=== PATIENT | female | born 1970 | race Caucasian/White ===

== ENCOUNTER 2024-09-11 17:18 | Emergency (ER) | payer MEDICAID, SELFPAY ==
[2024-09-11 17:55] VITALS: BP 153/84; PULSE 63; RESP 18; TEMP 37.1; O2SAT 97; BMI 39.4
--- NOTE | 2024-09-11 18:01 | EKG_ITS ---
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
--- NOTE | 2024-09-11 18:01 | XR_ITS ---
Examination: CT brain head without contrast. 2-D sagittal coronal reconstructions Date and time of exam:September 11, 2024, 1821 hours INDICATIONS: Onset headaches today CTDI: vol (mGy):51.3 DLP: (mGycm):1012 Technique: Multiple CT axial sections of the brain have been obtained, 5 mm slice thickness. Contrast has not been administered. 2-D sagittal, coronal reconstructions have been obtained Low dose protocols were performed. One or more of the following dose reduction techniques were used; automated exposure control, adjustment of the mA and/or KV according to patient size, use of iterative reconstruction technique. Findings: No significant ventricular enlargement. No definite hemorrhage No mass effect or midline shift Basal cisterns are not remarkable. Fourth ventricle is midline. Cranial vault intact. Impression: Negative for acute hemorrhage, mass effect or midline shift If new onset headaches persist, recommend brain MRI MRA without contrast follow-up
--- NOTE | 2024-09-11 18:02 | PD.EDRME ---
Rapid Medical Screening Exam RME Arrival date/time: 09/11/24 17:18 54-year-old female presents emergency department today complaints of dizziness and ringing in her ear since last night patient reports he went to primary care doctor was given meclizine and Zofran without relief Chief Complaint: Nausea/Vomiting/Diarrhea Vital signs: Vital Signs Temperature 98.8 F 09/11/24 17:55 Pulse Rate 63 09/11/24 17:55 Respiratory Rate 18 09/11/24 17:55 Blood Pressure 153/84 H 09/11/24 17:55 Pulse Oximetry (%) 97 09/11/24 17:55 Oxygen Delivery Method Room Air 09/11/24 17:55
[2024-09-11 19:04] LABS: Basophils % (Auto) 0 % (0-2.5); Eosinophils # (Auto) 0.1 Thou/mm3 (0.0-0.5); Eosinophils % (Auto) 1 % (0-10); Hematocrit 37.2 % (36.0-46.0); Hemoglobin 12.1 g/dL (12.0-16.0); Immature Granulocytes % (Auto) 0 % (0-0); Immature Granulocytes Auto 0.02 Thou/mm3 (0.00-0.00); Lymphocytes # (Auto) 1.8 Thou/mm3 (1.0-4.8); Lymphocytes % (Auto) 22 % (10-50); Mean Corpuscular HGB Conc 32.5 g/dl (31.0-37.0); Mean Corpuscular Hemoglobin 26.7 pg (25.0-35.0); Mean Corpuscular Volume 82 fL (80-100); Monocytes # (Auto) 0.7 Thou/mm3 (0.0-0.8); Monocytes % (Auto) 9 % (0-12); Neutrophils # (Auto) 5.4 Thou/mm3 (1.8-7.7); Neutrophils % (Auto) 68 % (37-80); Nucleated Red Blood Cell % 0 /100 WBC (0); Platelet Count 205 Thou/mm3 (140-440); RDW Standard Deviation 47.8 fL (36.4-46.3); Red Blood Count 4.54 Miln/mm3 (4.00-5.20); White Blood Count 7.9 Thou/mm3 (3.6-11.0)
--- NOTE | 2024-09-11 19:06 | PD.EDDIZZY ---
ED Dizzyness RME/HPI General Chief Complaint: Nausea/Vomiting/Diarrhea Stated Complaint: MUCHO VOMITO , DIZZINESS X 0300; SEEN AT CLINIC Time Seen by Provider: 09/11/24 18:26 Arrival date/time: 09/11/24 17:18 RME / HPI RME / HPI Narrative: 09/11/24 17:18 54-year-old female presents emergency department today complaints of dizziness and ringing in her ear since last night patient reports he went to primary care doctor was given meclizine and Zofran without relief -------- This section includes all my notes and documentations, including HPI, PE, and ED course. Aryan Samaniego MD HPI: 54-year-old female here with 3-day history of dizziness. She reports spinning sensation and vomiting. Associated with moving, including her head. No speech or visual impairment. No loss of power in the arms or legs. No numbness or tingling. No chest pain or shortness of breath. No other complaints. ROS: All negative except as documented in HPI. Physical Exam: General: Alert and oriented. No acute distress when remaining still. Eyes: Conjunctivae and lids clear. EOMI. PERRL. ENT: No nasal congestion. Neck: Supple. Heart: RRR. Lungs: No respiratory distress. Good air movement. No rhonchi, wheezing, rales. Abdomen: Soft and nontender. Legs: No clubbing, cyanosis, edema. Skin: Warm and dry. Neuro: Alert and oriented X 3. Cranial nerves II to XII grossly normal. No peripheral motor deficits. I reviewed all diagnostic test results. My interpretation of the EKG is sinus rhythm with no acute ST?T changes. My review of the head CT report is no acute findings. Blood tests and urine tests unremarkable. At this point, diagnoses include vertigo. Treatment here included NS IVF, Meclizine, Zofran, and Scopolamine. Significant improvement noted. Recommended supportive care and more outpatient workup. Based on my best medical judgment, made decision no further evaluation or treatment indicated at this time. Patient understands and agrees to the discharge instructions customized and printed, see below. Discharge instructions from Dr. Samaniego: ? After extensive evaluation, there is no life-threatening condition. Such as stroke or brain tumor or heart attack. -- Your severe symptoms are due to vertigo. This is an inner ear problem that makes you feel like you are drunk or seasick. See attached handout. -- Use scopolamine patch and/or meclizine for your severe symptoms. -- And Zofran for nausea/vomiting. And increase oral fluid to prevent dehydration. Maintain clear urine. If dark or yellow, increase oral fluid. -- And do everything very slowly. Including moving your head. And when you sit up or stand up, wait a minute before you progress. -- See your private doctor on 09/12/2024. If needed, ask to help you get more care not available here in the ER. Such as MRI imaging of your brain, physical therapy, table tilt test, and referrals to see specialists (such as neurologist and ENT specialist). -- Seek immediate medical care with worsening or with any concerns. Aryan Samaniego MD Related Data Previous Rx's ?Medication ?Instructions ?Recorded meclizine 25 mg tablet 25 mg PO BID PRN dizziness #20 tabs 09/11/24 ondansetron 4 mg disintegrating 4 mg PO TID PRN nausea and 09/11/24 tablet vomiting 30 days #10 tabs scopolamine base 1 mg over 3 days 1 mg topical .q72 hours PRN 09/11/24 transdermal patch (Transderm-Scop) dizziness or vertigo #4 ea Allergies Allergy/AdvReac Type Severity Reaction Status Date / Time No Known Allergies Allergy Verified 09/11/24 17:21 Review of Systems Review of Systems Systems Reviewed: All systems reviewed, normal except as documented Past Medical History Social History SMOKING STATUS: Never smoker ED Exam Narrative Physical exam: As noted in HPI. Course Quality Measures none Orders Category Date Time Status Bedside COVID-19 Antigen Test NOW Care 09/11/24 18:42 Active Bedside Influenza A&B Antigen Test NOW Care 09/11/24 18:42 Completed EKG (ED ONLY) *Do not use* NOW Care 09/11/24 18:01 Completed Saline [Insert IV] NOW Care 09/11/24 18:42 Active Straight [In and Out Catheter] X1 Care 09/11/24 18:[address] head/brain wo con Stat Exams 09/11/24 18:01 Completed EKG (ED Only) Stat Exams 09/11/24 18:01 Draft B-Type Natriuretic Peptide Stat Lab 09/11/24 18:40 Completed CBC Stat Lab 09/11/24 18:40 Completed Comprehensive Metabolic Panel Stat Lab 09/11/24 18:40 Completed Magnesium Stat Lab 09/11/24 18:40 Completed Partial Thromboplastin Time Stat Lab 09/11/24 18:40 Received Prothrombin Time with INR Stat Lab 09/11/24 18:40 Received Troponin I Stat Lab 09/11/24 18:40 Completed Urinalysis Stat Lab 09/11/24 19:08 Completed Urine Culture Stat Lab 09/11/24 19:46 Ordered Meclizine HCl [Antivert] Med 09/11/24 18:42 Discontinued 25 mg PO X1 ONE Ondansetron Inj [Zofran Inj] Med 09/11/24 18:42 Discontinued 4 mg IV X1 ONE Scopolamine [Transderm-Scop Patch] Med 09/11/24 18:42 Discontinued 1 mg TOP X1 ONE Sodium Chloride 0.9% 1000 ml [Ns] 1,000 ml Med 09/11/24 18:42 Discontinued IV 999 mls/hr Vital Signs Vital signs: Vital Signs Temperature 98.8 F 09/11/24 17:55 Pulse Rate 63 09/11/24 17:55 Respiratory Rate 18 09/11/24 17:55 Blood Pressure 153/84 H 09/11/24 17:55 Pulse Oximetry (%) 97 09/11/24 17:55 Oxygen Delivery Method Room Air 09/11/24 17:55 Dizziness Patient data External records reviewed:: [facility] previous records (Per chart review, patient has no previous ED visits or admissions to this facility.) Clinical information provided by:: patient Social determinants that could affect healthcare access:: none Patient has the following chronic illnesses:: none How is presenting disease/condition affected by chronic disease/condition?: no chronic disease Evaluation data The following diagnostics were reviewed and interpreted by me:: lab results, radiology exam(s) and EKG tracing(s) Lab and/or radiology exams considered but not ordered:: none Interpretation Summary: Normal diagnostics Medications / Prescriptions Medications or Prescriptions considered but not ordered:: none Medication administrations:: Medication Administration History Discontinued Medications Sodium Chloride (Ns) 1,000 mls @ 999 mls/hr IV .Q1H1M ONE Stop: 09/11/24 19:42 Last Admin: 09/11/24 19:18 Dose: 999 mls/hr Documented By: DEANDRE Meclizine HCl (Meclizine Hcl 25 Mg Tablet) 25 mg PO X1 ONE Stop: 09/11/24 18:43 Last Admin: 09/11/24 19:18 Dose: 25 mg Documented By: DEANDRE Ondansetron HCl (Ondansetron Inj 2 Mg/Ml Inj 2 Ml) 4 mg IV X1 ONE; Protocol Stop: 09/11/24 18:43 Last Admin: 09/11/24 19:23 Dose: 4 mg Documented By: DEANDRE Scopolamine (Scopolamine 1 Mg Tdsy) 1 mg TOP X1 ONE Stop: 09/11/24 18:43 Last Admin: 09/11/24 19:18 Dose: 1 mg Documented By: DEANDRE NS IVF, Meclizine, Zofran, Scopolamine Consultations Consultation(s) initiated? (list below): No Diagnosis Dizziness Differential Diagnosis: benign paroxysmal positional vertigo, orthostatic hypotension, cerebrovascular accident, transient cerebral ischemia and other (CREATIVE/ART DIRECTOR tumor, HI, dehydration, electrolyte abnormalities) Most likely diagnosis given after review of the tests above:: vertigo Admission Indicated Admission indicated?: not indicated Explain why admission is indicated or not indicated:: No criteria for admission. Admission Request Was there a request for admission?: No Disposition Plan Disposition Plan: Discharge Discharge Attestation Discharge Attestation: The patient and all family members were given an opportunity to ask questions and understood the discharge instructions. Discharge instructions specifically effects, indications for sooner follow up or return to the emergency department, and the expected course of current diagnosis. Patient condition: Stable Discharge Plan Plan Patient Disposition: HOME (Self Care) Prescriptions/Referrals Prescriptions/Med Rec: New meclizine 25 mg tablet 25 mg PO BID PRN (Reason: dizziness) Qty: 20 0RF scopolamine base [Transderm-Scop] 1 mg over 3 days patch 3 day 1 mg topical .q72 hours PRN (Reason: dizziness or vertigo) Qty: 4 0RF ondansetron 4 mg tablet,disintegrating 4 mg PO TID PRN (Reason: nausea and vomiting) 30 Days Qty: 10 0RF Referrals: No Primary/Family,Physician [Primary Care Provider] - In 1 week Problem List Clinical Impression: Vertigo Patient/Caregiver Discharge Instructions Discharge Activity: activity as tolerated Education Materials: ED Vertigo, Unspecified Additional Instructions: Discharge instructions from Dr. Samaniego: ? After extensive evaluation, there is no life-threatening condition.? Such as stroke or brain tumor or heart attack. -- Your severe symptoms are due to vertigo.? This is an inner ear problem that makes you feel like you are drunk or seasick.? See attached handout. -- Use scopolamine patch and/or meclizine for your severe symptoms. -- And Zofran for nausea/vomiting.? And increase oral fluid to prevent dehydration.? Maintain clear urine.? If dark or yellow, increase oral fluid. -- And do everything very slowly.? Including moving your head.? And when you sit up or stand up, wait a minute before you progress.? -- See your private doctor on 09/12/2024. If needed, ask to help you get more care not available here in the ER.? Such as MRI imaging of your brain, physical therapy, table tilt test, and referrals to see specialists (such as neurologist and ENT specialist). -- Seek immediate medical care with worsening or with any concerns. Instrucciones de patti del Dr. Samaniego: ? Tras mayito evaluaci?n exhaustiva, no se whyte detectado ninguna afecci?n potencialmente mortal, james un derrame cerebral, un tumor cerebral o un infarto. -- Lynn s?ntomas graves se deben al v?rtigo. Se trata de un problema del o?do interno que le produce mayito sensaci?n de ebriedad o mareo. Consulte el folleto adjunto. -- Use un parche de escopolamina o meclizina para los s?ntomas graves. -- Y Zofran para las n?useas y los v?mitos. Aumente la ingesta de l?quidos por v?a oral para prevenir la deshidrataci?n. Mantenga la orina shy. Si es oscura o amarilla, aumente la ingesta de l?quidos por v?a oral. -- Jennifer todo muy lentamente, incluyendo finish remover la carolynn. Al incorporarse o levantarse, espere un minuto antes de continuar. -- Consulte a kim m?dico particular el 12/09/2024. Si es necesario, solicite ayuda para obtener m?s atenci?n que no est? disponible en urgencias. James im?genes por resonancia magn?maren del cerebro, fisioterapia, prueba de inclinaci?n de la alcantar y derivaciones a especialistas (james neur?logos y otorrinolaring?logos). -- Busque atenci?n m?dica inmediata si presenta empeoramiento o cualquier inquietud. Print Language: Serbian Stand Alone Forms: Dionne Award Info., Patient Portal Info Letter
[2024-09-11 19:16] LABS: Collection Type, Urine Clean Catch; RBC,Urine 0 /hpf (0-3)
[2024-09-11] MEDS: MECLIZINE HCL 25 MG TABLET PO (19:18)
[2024-09-11] MEDS: SCOPOLAMINE 1 MG TDSY TOP (19:18)
[2024-09-11] MEDS: SODIUM CHLORIDE 0.9% 1000 ML 1,000 ML 999 ML IV (19:18)
[2024-09-11 19:21] LABS: Alanine Aminotransferase 26 U/L (10-49); Albumin, Serum 4.4 gm/dL (3.5-5.0); Albumin/Globulin Ratio 1.5 (1.2-2.2); Alkaline Phosphatase 89 U/L (46-116); Anion Gap 10 (7-16); Aspartate Amino Transferase 27 U/L (0-34); BUN/Creatinine Ratio 16 Ratio (12-20); Bilirubin,Total 0.6 mg/dL (0.3-1.2); Blood Urea Nitrogen 11 mg/dL (9-23); Calcium 9.5 mg/dL (8.3-10.6); Calcium (Corrected) 9.5 mg/dL (8.5-10.1); Carbon Dioxide 25.9 mMol/L (20.0-31.0); Chloride 105 mMol/L (98-107); Creatinine (Component) 0.7 mg/dL (0.6-1.3); Estimated Creatinine Clearance 94.9 mL/min (>60); Globulin 2.9 gm/dL (2.3-3.5); Glucose 115 mg/dL (74-106); Osmolality,Calculated 281 (275-295); Potassium 3.6 mMol/L (3.4-5.1); Sodium 141 mMol/L (136-145); Total Protein 7.3 gm/dL (5.7-8.2); Troponin I < 0.002 ng/mL (0.0-0.045); eGFR > 60 See Note
[2024-09-11] MEDS: ONDANSETRON INJ 2 MG/ML INJ 2 ML 4 MG IV (19:23)
[2024-09-11 19:31] VITALS: BP 128/68; PULSE 69; RESP 16; TEMP 36.7; O2SAT 97
[2024-09-11 19:37] LABS: B-Type Natriuretic Peptide 61 pg/mL (0-100)
[2024-09-11 19:38] LABS: Bilirubin,Urine Negative (Negative); Blood,Urine Negative (Negative); Clarity,Urine Turbid (Clear/Hazy); Color,Urine Yellow (Lt Yel-Yel); Glucose, Urine Negative (Negative); Ketones,Urine 1+ (Negative); Leukocyte Esterase,Urine Positive (Negative); Nitrite,Urine Negative (Negative); Protein,Urine Trace (Neg - Trace); Specific Gravity,Urine 1.026 (1.001-1.035); Squamous Epithelial Cell,Urine 8 /hpf (0-5); Urobilinogen,Urine Negative mg/dL (0.0-1.0); WBC,Urine 45 /hpf (0-5)
[2024-09-11 20:57] VITALS: BP 132/75; PULSE 75; RESP 19; TEMP 36.8; O2SAT 98
[2024-09-11 22:22] LABS: Partial Thromboplastin Time 25.5 Seconds (22.0-36.0)
[2024-09-11 22:25] LABS: Prothrombin Time > 63.0 Seconds (9.0-12.2)
== END 2024-09-11 21:13 | disposition home or self-care (01) ==
PROVIDERS: Nurse Practitioner Primary Care; Emergency Provider Emergency Medicine
DX: R42 Dizziness and giddiness (principal); R51.9 Headache, unspecified; I45.10 Unspecified right bundle-branch block
CPT/HCPCS: 36415; 70450; 80053; 81001; 83735; 83880; 84484; 85025; 85610; 85730; 87086; 87400; 87811; 93005; 96361; 96374; 99284; J2405; J7030; A9270

== ENCOUNTER 2025-03-30 10:49 | Emergency (ER) | payer MEDICAID, SELFPAY ==
[2025-03-30 11:18] VITALS: BP 138/88; PULSE 87; RESP 18; TEMP 36.7; O2SAT 99; BMI 34.1
--- NOTE | 2025-03-30 11:18 | PD.EDRME ---
Rapid Medical Screening Exam RME Arrival date/time: 03/30/25 10:49 55-year-old female with no known medical history sent to the emergency room by her primary care provider due to elevated coagulation levels. Patient is scheduled to have a right sided hip surgery but due to her coagulation levels she is unable to get clearance. Primary care provider sent her to the emergency room for further management I have greeted and performed a focused initial assessment of this patient. A comprehensive ED assessment and evaluation of the patient, analysis of all test results, and completion of the medical decision making process will be conducted by additional ED providers. Chief Complaint: General Adult/Misc Complain Time Seen by Provider: 03/30/25 11:03 Vital signs reviewed by provider: Yes
[2025-03-30 12:07] LABS: Basophils # (Auto) 0.0 Thou/mm3 (0.0-0.2); Basophils % (Auto) 1 % (0-2.5); Eosinophils # (Auto) 0.1 Thou/mm3 (0.0-0.5); Eosinophils % (Auto) 1 % (0-10); Hematocrit 38.2 % (36.0-46.0); Hemoglobin 12.2 g/dL (12.0-16.0); Immature Granulocytes Auto 0.01 Thou/mm3 (0.00-0.00); Lymphocytes # (Auto) 2.2 Thou/mm3 (1.0-4.8); Lymphocytes % (Auto) 34 % (10-50); Mean Corpuscular HGB Conc 31.9 g/dl (31.0-37.0); Mean Corpuscular Hemoglobin 25.6 pg (25.0-35.0); Mean Corpuscular Volume 80 fL (80-100); Monocytes # (Auto) 0.6 Thou/mm3 (0.0-0.8); Monocytes % (Auto) 9 % (0-12); Neutrophils # (Auto) 3.7 Thou/mm3 (1.8-7.7); Neutrophils % (Auto) 56 % (37-80); Nucleated Red Blood Cell # 0.00 Thou/mm3 (0.00-0.00); Nucleated Red Blood Cell % 0 /100 WBC (0); Platelet Count 201 Thou/mm3 (140-440); RDW Standard Deviation 44.9 fL (36.4-46.3); Red Blood Count 4.76 Miln/mm3 (4.00-5.20); White Blood Count 6.7 Thou/mm3 (3.6-11.0)
[2025-03-30 12:27] LABS: Alanine Aminotransferase 30 U/L (10-49); Albumin, Serum 4.7 gm/dL (3.5-5.0); Albumin/Globulin Ratio 1.7 (1.2-2.2); Alkaline Phosphatase 100 U/L (46-116); Anion Gap 9 (7-16); Aspartate Amino Transferase 31 U/L (0-34); BUN/Creatinine Ratio 14 Ratio (12-20); Bilirubin,Total 0.4 mg/dL (0.3-1.2); Blood Urea Nitrogen 10 mg/dL (9-23); Calcium 9.4 mg/dL (8.3-10.6); Calcium (Corrected) 9.4 mg/dL (8.5-10.1); Carbon Dioxide 23.7 mMol/L (20.0-31.0); Chloride 108 mMol/L (98-107); Creatinine (Component) 0.7 mg/dL (0.6-1.3); Estimated Creatinine Clearance 101.1 mL/min (>60); Globulin 2.8 gm/dL (2.3-3.5); Glucose 95 mg/dL (74-106); Osmolality,Calculated 280 (275-295); Potassium 3.8 mMol/L (3.4-5.1); Sodium 141 mMol/L (136-145); Total Protein 7.5 gm/dL (5.7-8.2); eGFR > 60 See Note
[2025-03-30 12:36] LABS: Partial Thromboplastin Time 25.4 Seconds (22.0-36.0)
--- NOTE | 2025-03-30 12:39 | EDNOTE_ITS ---
ED General RME/HPI General Chief complaint: General Adult/Misc Complain Stated complaint: Sent for lab work Time Seen by Provider: 03/30/25 11:03 Arrival date/time: 03/30/25 10:49 RME / HPI RME / HPI narrative: 03/30/25 10:49 55-year-old female with no known medical history sent to the emergency room by her primary care provider due to elevated coagulation levels. Patient is scheduled to have a right sided hip surgery but due to her coagulation levels she is unable to get clearance. Primary care provider sent her to the emergency room for further management I have greeted and performed a focused initial assessment of this patient. A comprehensive ED assessment and evaluation of the patient, analysis of all test results, and completion of the medical decision making process will be conducted by additional ED providers. DR. 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 Patient reportedly was having preoperative labs performed for upcoming right hip surgery to be performed by Dr. Chiang. However, was called today by PCP stating her labs were critically abnormal and advised she come to the ED for further evaluation. Patient states she had been diagnosed with Factor VII deficiency while in [place] ~1 year ago and has yet to follow up with [employer]. No other associated symptoms reported. Related Data Previous Rx's ?Medication ?Instructions ?Recorded meclizine 25 mg tablet 25 mg PO BID PRN dizziness # 20 tabs 09/11/24 scopolamine base 1 mg over 3 days 1 mg topical .q72 ho urs PRN 09/11/24 transdermal patch (Transderm-Scop) dizziness or vertig o #4 ea Allergies Allergy/AdvReac Type Severity Reaction Status Date / Time No Known Allergies Allergy Verified 09/11/24 17:21 Review of Systems Review of Systems Systems Reviewed: All systems reviewed, normal except as documented Past Medical History Social History SMOKING STATUS: Never smoker ED Exam Narrative Physical exam: GENERAL APPEARANCE: alert and oriented x 4, well-developed, well-nourished, no acute distress HEENT: Normocephalic, atraumatic; pupils equal, round, reactive to light; EOMI; mucous membranes pink, moist; oropharynx clear NECK: Supple LUNGS: CTABL; no wheezes, no rales, no rhonchi HEART: Regular rate, regular rhythm; normal S1, S2; no murmurs ABDOMEN: non distended; normal BS; soft, no tenderness, no guarding, no rebound; no masses, no organomegaly, no hernia EXTREMITIES: atraumatic; no edema NEUROLOGIC: awake; alert and oriented x4; cranial nerves II-XII grossly intact; no focal sensory or motor deficits PSYCHIATRIC: appropriate mood and affect SKIN: warm, dry, normal color; no rashes Course Course Course Narrative: 1530p: I spoke with heme-onc Dr. Huizar. Discussed patients PMHx, HPI, ED course, exam findings, labs results. States patient would require care at a tertiary center and advised we contact Dr. Villegas at [facility]. 1555p: A call out to Dr. Mix was made and is out of office at this time. 1645p: Patient remains clinically stable throughout the emergency department visit. We reviewed all the results, analysis, and treatment plans. Patient is amenable to discharge. Strict return precautions were outlined. Quality Measures none Orders Category Date Time Status CBC Stat Lab 03/30/25 11:39 Completed CMP [Comprehensive Metabolic Panel] Stat Lab 03/30/25 11:39 Completed PT [Prothrombin Time with INR] Stat Lab 03/30/25 11:39 Completed PTT [Partial Thromboplastin Time] Stat Lab 03/30/25 11:39 Completed Vital Signs Vital signs: Vital Signs Temperature 98.1 F 03/30/25 11:18 Pulse Rate 87 03/30/25 11:18 Respiratory Rate 18 03/30/25 11:18 Blood Pressure 138/88 H 03/30/25 11:18 Pulse Oximetry (%) 99 03/30/25 11:18 Oxygen Delivery Method Room Air 03/30/25 11:18 Pulse ox is 99% on room air which is adequate. Discharge Plan Prescriptions/Referrals Prescriptions/Med Rec: No Action meclizine 25 mg tablet 25 mg PO BID PRN (Reason: dizziness) Qty: 20 0RF scopolamine base [Transderm-Scop] 1 mg over 3 days patch 3 day 1 mg topical .q72 hours PRN (Reason: dizziness or vertigo) Qty: 4 0RF Referrals: Brant Sellers MD [Primary Care Provider, Family Practice] - In 1 week Problem List Clinical Impression: Factor VII deficiency, Right hip pain Patient/Caregiver Discharge Instructions Additional Instructions: Dr. Dina Mix Hematology, medical oncology Address: [address] [place] [address] Dr Garrido [place] [phone] Phone number: Print Language: Algerian MDM Narrative MDM hospital course (for use when minimal MDM required): Caty Paz am scribing for and in the presence of Dr. Becker. Clinical Information Provided by: patient Medical Records reviewed [facility] Meds/Rx considered, not ordered None Labs/Rad/Tests considered, not ordered None Chronic Illness/Social Conditions which may negatively complicate care or outcome(s)-explain: None or not applicable EKG EKG not done Labs Labs: interpreted by ar Lab(s) Interpretation(s): CBC with no acute findings CMP with no acute findings PT> 63.0 seconds PTT 25.4 seconds Imaging Imaging interpretation: none Medication Administration(s) none Diagnosis Diagnoses ruled out and/or further discussions: Factor VII deficiency Right hip pain
[2025-03-30 12:41] LABS: Prothrombin Time > 63.0 Seconds (9.0-12.2)
--- NOTE | 2025-03-30 12:41 | PC.NURSE ---
CALL FROM [facility] IN LAB. PT'S PT GREATER THAN 63, UNABLE TO CALCULATE INR D/T HIGH PT. NOTE WRITTEN FOR .
[2025-03-30 15:00] VITALS: BP 130/84; PULSE 69; RESP 18; TEMP 36.6; O2SAT 99
== END 2025-03-30 17:55 | disposition home or self-care (01) ==
PROVIDERS: Nurse Practitioner Family; Emergency Provider Emergency Medicine; PCP Family Medicine
DX: D68.2 Hereditary deficiency of other clotting factors (principal); M25.551 Pain in right hip
CPT/HCPCS: 36415; 80053; 85025; 85610; 85730; 99283